=== PATIENT | female | born 1955 | race Caucasian/White ===

== ENCOUNTER 2020-02-20 15:23 | Outpatient (CLI) | payer OTHER ==
--- NOTE | 2020-02-20 16:13 | ULT ---
THYROID ULTRASOUND: 02/20/20 INDICATIONS: Thyroid nodule. There are no comparison studies. Both lobes are homogeneous and have normal size. Right lobe measures 1.2 x 4.5 x 1.5 cm. Left lobe measures 1.5 x 3.8 x 1.3 cm. There are numerous bilateral thyroid nodules seen. In the right lobe, there is a complex nodule in the mid right lobe measuring 5 mm. Another 3 mm cysti c nodule in the mid right lobe. There are four or five other tiny hypoechoic nodules throughout the r ight lobe measuring in the 2 to 3 mm range. In the left lobe, there is a hypoechoic solid nodule in the mid left lobe measuring 4 to 6 mm. There is a solid circumscribed nodule in the inferior left lobe measuring 1.0 cm. At least two tiny hypoechoic nodules in the isthmus measuring 2 to 3 mm. IMPRESSION: Multiple small bilateral thyroid lobe nodules. Recommend follow-up ultrasound in six months to assess stability. POS: DAIJA
== END 2020-02-20 15:24 | disposition home or self-care (01) ==
LOC: BICULT 15:23
PROVIDERS: ATTEND Otolaryngology
DX: E04.2 Nontoxic multinodular goiter (principal)
CPT/HCPCS: 76536

== ENCOUNTER 2020-08-11 12:16 | Outpatient (CLI) | payer MEDICARE, OTHER ==
--- NOTE | 2020-08-11 13:02 | ULT ---
THYROID ULTRASOUND: COMPARISON: 02/20/2020. HISTORY: Thyroid nodules. FINDINGS: Thyroid isthmus: 0.41 cm. Right thyroid lobe: 4.4 x 1.5 x 1.2 cm. Left thyroid lobe: 3.8 x 1.3 x 1.3 cm. Thyroid nodules: Right thyroid lobe: 0.6 x 0.4 x 0.5 cm solid nodule in the upper pole. 0.3 x 0.3 x 0.3 cm anechoic fo cus in the upper pole. Left thyroid lobe: 0.5 x 0.4 x 0.4 cm solid nodule in the upper pole. 1.0 x 0.9 x 1.0 cm solid nodule in the lower pole of the left thyroid lobe. The a forementioned thyroid nodules are essentially unchanged. IMPRESSION: Solid nodules throughout the thyroid gland as described above. The most dominant solid nodules in the lower pole of the left thyroid lobe with a TIRADS level of TIRADS3, mildly suspicious. Followup imaging in one year. Transcribed Date/Time: 08/11/2020 1:16 PM
== END 2020-08-11 12:17 | disposition home or self-care (01) ==
LOC: BICULT 12:16
PROVIDERS: ATTEND Student in an Organized Health Care Education/Training Program
DX: E04.2 Nontoxic multinodular goiter (principal)
CPT/HCPCS: 76536

== ENCOUNTER 2020-10-21 14:16 | Outpatient (CLI) | payer MEDICARE, OTHER | END 2020-10-21 14:17 | disposition home or self-care (01) | LOC: CTENTCT 14:16 | PROVIDERS: ATTEND Student in an Organized Health Care Education/Training Program | DX: G50.1 Atypical facial pain (principal) | CPT/HCPCS: 70486 ==

== ENCOUNTER 2021-04-28 10:06 | Outpatient (CLI) | payer MEDICARE, OTHER | END 2021-04-28 10:07 | disposition home or self-care (01) | LOC: BICRAD 10:06 | PROVIDERS: ATTEND Internal Medicine | DX: M25.511 Pain in right shoulder (principal) ==

== ENCOUNTER 2021-05-05 14:26 | Outpatient (CLI) | payer MEDICARE, OTHER | END 2021-05-05 14:27 | disposition home or self-care (01) | LOC: BICMAMMO 14:26 | PROVIDERS: ATTEND Internal Medicine | DX: Z13.820 Encounter for screening for osteoporosis (principal); M85.851 Other specified disorders of bone density and structure, right thigh; M85.852 Other specified disorders of bone density and structure, left thigh; Z78.0 Asymptomatic menopausal state | CPT/HCPCS: 77080 ==

== ENCOUNTER 2021-10-25 14:17 | Outpatient (CLI) | payer MEDICARE, OTHER | END 2021-10-25 14:18 | disposition home or self-care (01) | LOC: BICULT 14:17 | PROVIDERS: ATTEND Internal Medicine | DX: E04.2 Nontoxic multinodular goiter (principal) | CPT/HCPCS: 76536 ==

== ENCOUNTER 2023-02-14 13:57 | Outpatient (CLI) | payer MEDICARE, OTHER | END 2023-02-14 13:58 | disposition home or self-care (01) | LOC: ULT 13:57 | PROVIDERS: ATTEND Student in an Organized Health Care Education/Training Program | DX: E04.2 Nontoxic multinodular goiter (principal) | CPT/HCPCS: 76536 ==

== ENCOUNTER 2023-05-01 12:00 | Outpatient (CLI) | payer MEDICARE, OTHER | END 2023-05-01 12:01 | disposition home or self-care (01) | LOC: SCSRAD 12:00 | PROVIDERS: ATTEND Internal Medicine | DX: M79.674 Pain in right toe(s) (principal) | CPT/HCPCS: 36415; 80053; 80061; 82043; 82607; 83036; 84439; 84443; 85025 ==

== ENCOUNTER 2023-05-02 14:42 | Outpatient (CLI) | payer MEDICARE, OTHER | END 2023-05-02 14:43 | disposition home or self-care (01) | LOC: BICMAMMO 14:42 | PROVIDERS: ATTEND Internal Medicine | DX: Z13.820 Encounter for screening for osteoporosis (principal); M85.852 Other specified disorders of bone density and structure, left thigh; M85.851 Other specified disorders of bone density and structure, right thigh; Z78.0 Asymptomatic menopausal state | CPT/HCPCS: 77080 ==

== ENCOUNTER 2023-08-14 12:09 | Outpatient (CLI) | payer MEDICARE, OTHER | END 2023-08-14 12:10 | disposition home or self-care (01) | LOC: BICRAD 12:09 | PROVIDERS: ATTEND Internal Medicine | DX: R06.00 Dyspnea, unspecified (principal) | CPT/HCPCS: 71046 ==